=== PATIENT | male | born 1965 | race Caucasian/White ===

== ENCOUNTER 2023-02-09 21:54 | Emergency (ER) | payer MEDICARE, MEDICAID ==
[~2023-02-09] VITALS: Ht 190.5 cm; Wt 71.0 kg
[2023-02-09 21:58] VITALS: BP 168/98
[2023-02-09] MEDS ORDERED: ACETAMINOPHEN 325MG TABLET PO ONE (23:15)
== END 2023-02-10 04:50 | disposition home or self-care (01) ==
LOC: ER 21:54
DX: R33.9 Retention of urine, unspecified (principal); I10 Essential (primary) hypertension
CPT/HCPCS: 51702; 99284

== ENCOUNTER → 2024-08-01 | Day surgery (SDC) | payer MEDICARE, MEDICAID ==
[~2024-08-01] MED LIST: LIDOCAINE HCL 1% 10 MG/ML 10ML VIAL ONE
== END | disposition home or self-care (01) ==
LOC: RADANGIO 09:34
PROVIDERS: ATTEND Internal Medicine
DX: Z45.2 Encounter for adjustment and management of vascular access device (principal); L89.300 Pressure ulcer of unspecified buttock, unstageable; Z98.890 Other specified postprocedural states
CPT/HCPCS: 36573; J3490; C1725; C1751